=== PATIENT | female | born 1990 | race Caucasian/White ===

== ENCOUNTER 2023-08-14 10:51 | Emergency (ER) | payer OTHER ==
[2023-08-14] MEDS ORDERED: Acetaminophen 500 MG TAB ONE (11:28)
[2023-08-14] MEDS ORDERED: Ketorolac Tromethamine 30 MG (1 mL) VIAL ONE (12:56)
== END 2023-08-14 14:27 | disposition home or self-care (01) ==
LOC: ERS 10:51
DX: S09.90XA Unspecified injury of head, initial encounter (principal); Z87.891 Personal history of nicotine dependence; Z55.6 Problems related to health literacy; W19.XXXA Unspecified fall, initial encounter
CPT/HCPCS: 70450; 96372; J1885